=== PATIENT | female | born 1990 ===

== ENCOUNTER 2021-03-19 08:45 | Inpatient (IN) | payer OTHER | END 2021-03-26 09:06 | disposition home or self-care (01) | DRG 819 | LOC: OB/GYN 03-24 08:45 → O/R 03-24 09:58 → OB/GYN 03-24 10:15 | PROVIDERS: ADMIT Obstetrics & Gynecology Maternal & Fetal Medicine; ATTEND Obstetrics & Gynecology Maternal & Fetal Medicine | PROC: 0UVC0ZZ Restriction of Cervix, Open Approach (ICD-10-PCS; principal; 2021-03-24 10:15) | DX: O34.31 Maternal care for cervical incompetence, first trimester (principal); Z3A.00 Weeks of gestation of pregnancy not specified ==